=== PATIENT | female | born 1960 | race Caucasian/White ===

== ENCOUNTER 2018-02-09 20:01 | Observation (INO) ==
[2018-02-09 20:41] LABS: Basophils % 0.3 %; Eosinophils # 0.1 K/mcL (0.0-0.6); Eosinophils % 1.2 %; Hematocrit 39.9 % (35.3-44.9); Hemoglobin 13.9 g/dL (11.5-15.4); Immature Granulocytes % 0.3 % (0-4); Lymphocytes # 2.4 K/mcL (0.6-4.6); Lymphocytes % 26.3 %; Mean Corpuscular HGB Conc 34.8 g/dL (31.6-35.5); Mean Corpuscular Hemoglobin 29.6 pg (28.0-33.3); Mean Corpuscular Volume 84.9 fL (83.0-100.0); Mean Platelet Volume 10.7 fL (9.4-12.4); Monocytes # 0.5 K/mcL (0.0-1.3); Monocytes % 5.9 %; Platelet Count 210 K/mcL (140-400); Red Cell Distribution Width 12.1 % (11.5-14.5)
[2018-02-09 20:50] LABS: Activated Partial Thrombo Time 32.5 Seconds (26.0-36.0)
--- NOTE | 2018-02-09 21:01 | Emergency Department Note ---
Disposition Clinical Impression: Chest pain Disposition: Admitted As Inpatient Condition: Good Referrals: Nette Yun MD [Primary Care Provider] - Forms: ED Satisfaction Letter Time of Disposition: 21:37 Chest Pain HPI - General Chief Complaint: ED Chest Pain Stated Complaint: cp/sob Time Seen by Provider: 02/09/18 20:26 Source: patient Mode of arrival: ambulatory Limitations: no limitations Vital Signs Reviewed: Yes Nursing Notes Reviewed: Yes - History of Present Illness HPI Narrative: Patient presents to the ED with the chief complaint of chest pain. Patient does have a history of [place] requiring one stent about 2 years ago. States that she woke up this evening to go to work over night around 6 PM and just did not feel right. She went to work and had her blood pressure checked and it was very high. Reports that she took her blood pressure medicine and that had come down. During this timeframe. She also started developing some centralized chest heaviness and pressure. She also was diaphoretic and nauseated. She states this was how she fell last time before she had her heart attack. The pain went away and has been gone since. She states she is just concerned because this is how she felt before her last heart attack. Severity scale (1-10): 0 - Related Data Home Medications Medication Instructions Recorded Confirmed Aspirin Enteric Coated [Aspirin EC] 81 mg PO DAILY 02/09/18 02/09/18 Cyclobenzaprine [Flexeril] 10 mg PO BID 02/09/18 02/09/18 Meloxicam 15 mg PO DAILY 02/09/18 02/09/18 Metoprolol [Lopressor] 50 mg PO BID 02/09/18 02/09/18 Rosuvastatin [Crestor] 40 mg PO DAILY 02/09/18 02/09/18 Allergies Allergy/AdvReac Type Severity Reaction Status Date / Time No Known Allergies Allergy Verified 09/02/16 21:52 Review of Systems: As reviewed in the HPI. All other systems reviewed are negative or normal. 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 Absent: tenderness, distention, guarding, rebound, rigidity - Extremities Exam Extremities exam: Present: normal inspection, full ROM. Absent: tenderness, pedal edema Course Course Narrative: Patient presenting with chest pain. It is her anginal equivalent. We will workup and likely admit - Reevaluation(s) Reevaluation #1: Admitted to the hospitalist service under Dr. Stewart. Vital Signs Temperature 97.9 F 02/09/18 20:08 Pulse Rate 99 02/09/18 20:08 Respiratory Rate 22 02/09/18 20:08 Blood Pressure 202/111 02/09/18 20:08 O2 Sat by Pulse Oximetry 98 02/09/18 20:08 Temperature 97.9 F 02/09/18 20:08 Pulse Rate 99 02/09/18 20:08 Respiratory Rate 22 02/09/18 20:08 Blood Pressure 202/111 02/09/18 20:08 O2 Sat by Pulse Oximetry 98 02/09/18 20:08 Oxygen Delivery Oxygen Delivery Room Air Chest Pain - Medical Records Medical records reviewed: Yes I reviewed the patient's medical records. - Lab Data Lab results reviewed: Yes I reviewed the patient's lab results. Result diagrams: 02/09/18 20:23 02/09/18 20:23 Lab Results 02/09/18 02/09/18 02/09/18 Range/Units 20:13 20:13 20:23 WBC 9.2 (4.3-11.1) K/mcL RBC 4.70 (3.82-4.97) M/mcL Hgb 13.9 (11.5-15.4) g/dL Hct 39.9 (35.3-44.9) % MCV 84.9 (83.0-100.0) fL MCH 29.6 (28.0-33.3) pg MCHC 34.8 (31.6-35.5) g/dL RDW 12.1 (11.5-14.5) % Plt Count 210 (140-400) K/mcL MPV 10.7 (9.4-12.4) fL Immature Gran % 0.3 (0-4) % Seg Neutrophils % 66.0 % Lymphocytes % 26.3 % Monocytes % 5.9 % Eosinophils % 1.2 % Basophils % 0.3 % Neutrophils # 6.0 (1.6-8.9) K/mcL Lymphocytes # 2.4 (0.6-4.6) K/mcL Monocytes # 0.5 (0.0-1.3) K/mcL Eosinophils # 0.1 (0.0-0.6) K/mcL Basophils # 0.0 (0.0-0.2) K/mcL PT 11.0 (9.4-12.1) Seconds INR 1.0 APTT 32.5 (26.0-36.0) Seconds Sodium (136-145) mEq/L Potassium (3.5-5.1) mEq/L Chloride (98-107) mEq/L Carbon Dioxide (23-29) mEq/L BUN (6-20) mg/dL Creatinine (0.60-1.20) mg/dL Est GFR ( Amer) (> 60) Est GFR (Non-Af Amer) (> 60) BUN/Creatinine Ratio (6-26) Glucose (70-105) mg/dL Calculated Osmolality (280-300) Calcium (8.6-10.3) mg/dL Troponin I (< 0.04) ng/mL B-Natriuretic Peptide 9 (Less than 100) pg/mL 02/09/18 Range/Units 20:23 WBC (4.3-11.1) K/mcL RBC (3.82-4.97) M/mcL Hgb (11.5-15.4) g/dL Hct (35.3-44.9) % MCV (83.0-100.0) fL MCH (28.0-33.3) pg MCHC (31.6-35.5) g/dL RDW (11.5-14.5) % Plt Count (140-400) K/mcL MPV (9.4-12.4) fL Immature Gran % (0-4) % Seg Neutrophils % % Lymphocytes % % Monocytes % % Eosinophils % % Basophils % % Neutrophils # (1.6-8.9) K/mcL Lymphocytes # (0.6-4.6) K/mcL Monocytes # (0.0-1.3) K/mcL Eosinophils # (0.0-0.6) K/mcL Basophils # (0.0-0.2) K/mcL PT (9.4-12.1) Seconds INR APTT (26.0-36.0) Seconds Sodium 137 (136-145) mEq/L Potassium 4.2 (3.5-5.1) mEq/L Chloride 105 (98-107) mEq/L Carbon Dioxide 27 (23-29) mEq/L BUN 24 H (6-20) mg/dL Creatinine 0.77 (0.60-1.20) mg/dL Est GFR ( Amer) > 60 (> 60) Est GFR (Non-Af Amer) > 60 (> 60) BUN/Creatinine Ratio 31 H (6-26) Glucose 133 H (70-105) mg/dL Calculated Osmolality 290 (280-300) Calcium 9.9 (8.6-10.3) mg/dL Troponin I < 0.03 (< 0.04) ng/mL B-Natriuretic Peptide (Less than 100) pg/mL - Radiology Data Radiology results reviewed: Yes I reviewed the patient's radiology results. - EKG Data EKG attestation: Yes I reviewed and interpreted this EKG. EKG results narrative: Sinus rhythm, rate 88, DC interval 160, QRS 79, QTC 372, left axis deviation, no acute ischemic changes Heart Score - Score History: Highly Suspicious EKG: Non Specific repolarisation Disturbance Age: 45-65 Risk Factors: Equal/Greater than 3 risk factor or history of atherosclerotic disease Troponin: Less than normal limit HEART Score Total: 6
[2018-02-09 21:03] LABS: BUN/Creatinine Ratio 31 (6-26); Blood Urea Nitrogen 24 mg/dL (6-20); Calcium 9.9 mg/dL (8.6-10.3); Carbon Dioxide 27 mEq/L (23-29); Chloride 105 mEq/L (98-107); Glucose 133 mg/dL (70-105); Osmolality,Calculated 290 (280-300); Potassium 4.2 mEq/L (3.5-5.1); Sodium 137 mEq/L (136-145); eGFR For African Americans > 60 (> 60); eGFR For Non-African Americans > 60 (> 60)
[2018-02-09 21:04] LABS: Troponin I < 0.03 ng/mL (< 0.04)
[2018-02-09] MEDS ORDERED: Naloxone 0.4 MG/ML INJ IVP PRN (21:52)
--- NOTE | 2018-02-09 21:55 | Internal Med History&Physical ---
Date of Encounter: 02/09/18 Time of Encounter: 21:54 Internal Medicine - H&P: HPI Chief complaint: Chest pain Admitted From: Emergency Dept Plans for Post Hospital Care: Home History of present illness: Ms. Gimenez is a 57 year old female who has background medical history of hypertension, hyperlipidemia, previous DVT, previous [place] followed by angiography and stent. Patient was not feeling well for the past 3 days. This morning when she was heading to her workplace, at that time she felt that she is not with herself. She was evaluated by her work associated healthcare provider and was told that her blood pressure is above 200. Patient was persistently feeling drowsy, fatigue and low energy. Patient was complaining of left-sided precordial chest pain which was nonradiating, localized, not associated with vomiting. Patient claims that the pain gets worse with the labs Workup in the emergency room: Patient was evaluated by the emergency room physician. Baseline labs were ordered. Reason for admission: Chest pain to rule out ACS. Past Med Surg Social Fam HX - Past Medical History Medical history: DVT, hyperlipidemia, hypertension, myocardial infarction Psychiatric history: no psych history - Social History Smoking Status: Former smoker Smokeless Tobacco Status: No Alcohol use: rarely Drug use: none - Family History Mother Living Status: Still Living Hx Family Cardiac Disorders: Yes (stents, mi) Hx Family Respiratory Disorders: Yes Hx Family Cancer: Yes (breast) Hx Family Genitourinary Disorders: Yes Hx Family Endocrine Disorder: Yes (dm) Father Living Status: Age at : 63 Cause of : mi Hx Family Cardiac Disorders: Yes (mi) Internal Medicine - H&P: Meds Aspirin Enteric Coated [Aspirin EC] 81 mg PO DAILY 02/09/18 [History] Cyclobenzaprine [Flexeril] 10 mg PO BID 02/09/18 [History] Meloxicam 15 mg PO DAILY 02/09/18 [History] Metoprolol [Lopressor] 50 mg PO BID 02/09/18 [History] Rosuvastatin [Crestor] 40 mg PO DAILY 02/09/18 [History] 3 Allergy/AdvReac Type Severity Reaction Status Date / Time No Known Allergies Allergy Verified 09/02/16 21:52 All Systems PM: A 10-system review of systems was performed and is negative for pertinent findings except as documented above in the HPI. - Constitutional Constitutional: no chills, no fever(s), no night sweats - EENT Eyes: no change in vision, no discharge, no pain, no photophobia Ears: no ear discharge, no ear pain, no tinnitus Nose, mouth and throat: no dysphagia, no nasal discharge, no neck pain, no sore throat - Cardiovascular Cardiovascular ROS IM: no chest pain, no diaphoresis, no dyspnea, no lightheadedness, no palpitations, no syncope - Respiratory Respiratory: no cough, no dyspnea, no wheezing, no excessive phlegm production - Gastrointestinal Gastrointestinal: no abdominal pain, no diarrhea, no hematemesis, no hematochezia, no melena, no nausea, no vomiting - Genitourinary Genitourinary: no change in urinary stream, no dysuria, no flank pain, no hematuria - Musculoskeletal Musculoskeletal ROS IM: no numbness, no tingling - Integumentary Integumentary IM: no rash, no unusual bruising - Neurological Neurological ROS: no confusion, no convulsions, no focal weakness, no numbness, no tingling, no tremor(s) - Hematologic/Lymphatic Hematologic/Lymphatic: no easy bruising - Constitutional Vitals: Temp Pulse Resp BP Pulse Ox 97.9 F 99 22 202/111 98 02/09/18 20:08 02/09/18 20:08 02/09/18 20:08 02/09/18 20:08 02/09/18 20:08 General appearance: Present: A&O X 3, pleasant, no acute distress, answers questions appropriately - Head Head exam: Present: atraumatic, normocephalic - Eye Eye exam: Present: PERRL, conjuntiva pink, sclera anicteric Pupils: Present: PERRL - Neck Neck exam general surgery: Present: supple, trachea midline. Absent: lymphadenopathy - Respiratory Respiratory exam: Present: CTAB. Absent: accessory muscle use, rales, rhonchi, wheezes - Cardiovascular Cardiovascular exam: Present: RRR, +S1, +S2. Absent: diastolic murmur, gallop, rubs, systolic murmur - GI/Abdominal GI/Abdominal exam: Present: normal bowel sounds, soft, no peritoneal signs. Absent: distended, tenderness - Extremities Exam Extremities exam: Present: warm, radial pulses palpable and symmetrical. Absent : calf tenderness, cyanotic, pedal edema - Neurological Exam Neurological exam: Present: CN II-XII intact, oriented X3, no focal deficits. Absent: pronater drift, facial droop, speech deficit - Skin Skin exam: Present: dry, intact Internal Med - H&P Results - Labs CBC & Chem 7: 02/09/18 20:23 02/09/18 20:23 Labs: Short CBC 02/09/18 Range/Units 20:23 WBC 9.2 (4.3-11.1) K/mcL Hgb 13.9 (11.5-15.4) g/dL Hct 39.9 (35.3-44.9) % Plt Count 210 (140-400) K/mcL Neutrophils # 6.0 (1.6-8.9) K/mcL BMP 02/09/18 20:23 Sodium 137 Potassium 4.2 Chloride 105 Carbon Dioxide 27 BUN 24 H Creatinine 0.77 Glucose 133 H Calcium 9.9 Cardiac Enzymes 02/09/18 Range/Units 20:23 Troponin I < 0.03 (< 0.04) ng/mL - Impressions ITS Impressions Chest X-Ray 02/09/18 20:13 IMPRESSION: No acute process. D/ / Samson Correia MD / Samson Correia MD Interpreting Provider: Samson Correia MD - Assessment and plan (1) Chest pain Current Visit: Yes Status: Acute Assessment and plan: 57/female Admitted with chest pain. ETTA score: 4 EKG: Nonspecific ST-T changes. Heart score:4 Plan: Admit as observation. Cardiac diet. EKG. Cycle troponin. Echocardiogram. If 3 troponins are normal and echocardiogram is normal then please consider stress test. I have examined this patient in the emergency room #21. Along with the patient and her was present in the room. Plan of care explained to the patient and her family members. They verbalize understanding Qualifiers: Chest pain type: precordial pain Qualified Code(s): R07.2 - Precordial pain (2) Coronary artery disease Current Visit: Yes Status: Acute Assessment and plan: Patient is known to have a coronary artery disease. Patient is a previous myocardial infarction with status post stent placement. We need records from the hospital where this procedure was done. Presently we will resume home medications. Qualifiers: Coronary Disease-Associated Artery/Lesion type: eek artery [place] vs. transplanted heart: eek heart Associated angina: with stable angina Qualified Code(s): I25.118 - Atherosclerotic heart disease of eek coronary artery with other forms of angina pectoris (3) Hypertension Current Visit: Yes Status: Acute Assessment and plan: Patient's blood pressure was elevated in the morning. Now her blood pressure is within acceptable range. We will resume the home medication. Close monitoring of the blood pressure during her hospitalization. Qualifiers: Hypertension type: essential hypertension Qualified Code(s): I10 - Essential (primary) hypertension (4) Dyslipidemia Current Visit: Yes Status: Acute Assessment and plan: We will resume home medication. We will get lipid panel tomorrow. (5) DVT prophylaxis Current Visit: Yes Status: Acute Assessment and plan: SCD Medical decision making: This patient has a moderate to severe risk of worsening in spite of being on appropriate medication due to the underlying complex medical condition. - Time Spent With Patient Total time spent is greater than 50% in coordination of care (as documented) at patient's floor/unit and/or counseling patient:
[2018-02-09] MEDS ORDERED: Nitroglycerin 0.4 MG TAB.SUBL SL PRN (21:56)
--- NOTE | 2018-02-09 22:24 | Emergency Department Note ---
Disposition Clinical Impression: Chest pain Disposition: Admitted As Inpatient Condition: Good General Adult HPI - General Chief complaint: ED Chest Pain Stated complaint: cp/sob Time Seen by Provider: 02/09/18 20:26 Source: patient Mode of arrival: ambulatory Limitations: no limitations Nursing Notes Reviewed: Yes Vital Signs Reviewed: Yes - History of Present Illness Pain Scale: 0 - Related Data Home Medications Medication Instructions Recorded Confirmed Aspirin Enteric Coated [Aspirin EC] 81 mg PO DAILY 02/09/18 02/09/18 Cyclobenzaprine [Flexeril] 10 mg PO BID 02/09/18 02/09/18 Meloxicam 15 mg PO DAILY 02/09/18 02/09/18 Metoprolol [Lopressor] 50 mg PO BID 02/09/18 02/09/18 Rosuvastatin [Crestor] 40 mg PO DAILY 02/09/18 02/09/18 Allergies Allergy/AdvReac Type Severity Reaction Status Date / Time No Known Allergies Allergy Verified 09/02/16 21:52 Constitutional: Reports: as per HPI Eyes: Reports: as per HPI Cardiovascular: Reports: as per HPI Past Medical History - Past Medical History Medical history: Reports: DVT, hyperlipidemia, hypertension, myocardial infarction Psychiatric history: Reports: no 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 - Social History Smoking Status: Former smoker Smokeless Tobacco Status: No Alcohol use: Reports: rarely Drug use: Reports: none Physical Exam - General Limitations: no limitations General appearance: alert, in no apparent distress Course Vital Signs Temperature 97.9 F 02/09/18 20:08 Pulse Rate 99 02/09/18 20:08 Respiratory Rate 22 02/09/18 20:08 Blood Pressure 202/111 02/09/18 20:08 O2 Sat by Pulse Oximetry 98 02/09/18 20:08 Temperature 97.9 F 02/09/18 20:08 Pulse Rate 76 02/09/18 22:01 Respiratory Rate 16 02/09/18 22:01 Blood Pressure 157/99 02/09/18 22:01 O2 Sat by Pulse Oximetry 98 02/09/18 22:01 Oxygen Delivery Oxygen Delivery Room Air Medical Decision Making - Lab Data Result diagrams: 02/09/18 20:23 02/09/18 20:23 Lab Results 02/09/18 02/09/18 02/09/18 Range/Units 20:13 20:13 20:23 WBC 9.2 (4.3-11.1) K/mcL RBC 4.70 (3.82-4.97) M/mcL Hgb 13.9 (11.5-15.4) g/dL Hct 39.9 (35.3-44.9) % MCV 84.9 (83.0-100.0) fL MCH 29.6 (28.0-33.3) pg MCHC 34.8 (31.6-35.5) g/dL RDW 12.1 (11.5-14.5) % Plt Count 210 (140-400) K/mcL MPV 10.7 (9.4-12.4) fL Immature Gran % 0.3 (0-4) % Seg Neutrophils % 66.0 % Lymphocytes % 26.3 % Monocytes % 5.9 % Eosinophils % 1.2 % Basophils % 0.3 % Neutrophils # 6.0 (1.6-8.9) K/mcL Lymphocytes # 2.4 (0.6-4.6) K/mcL Monocytes # 0.5 (0.0-1.3) K/mcL Eosinophils # 0.1 (0.0-0.6) K/mcL Basophils # 0.0 (0.0-0.2) K/mcL PT 11.0 (9.4-12.1) Seconds INR 1.0 APTT 32.5 (26.0-36.0) Seconds Sodium (136-145) mEq/L Potassium (3.5-5.1) mEq/L Chloride (98-107) mEq/L Carbon Dioxide (23-29) mEq/L BUN (6-20) mg/dL Creatinine (0.60-1.20) mg/dL Est GFR ( Amer) (> 60) Est GFR (Non-Af Amer) (> 60) BUN/Creatinine Ratio (6-26) Glucose (70-105) mg/dL Calculated Osmolality (280-300) Calcium (8.6-10.3) mg/dL Troponin I (< 0.04) ng/mL B-Natriuretic Peptide 9 (Less than 100) pg/mL 02/09/18 Range/Units 20:23 WBC (4.3-11.1) K/mcL RBC (3.82-4.97) M/mcL Hgb (11.5-15.4) g/dL Hct (35.3-44.9) % MCV (83.0-100.0) fL MCH (28.0-33.3) pg MCHC (31.6-35.5) g/dL RDW (11.5-14.5) % Plt Count (140-400) K/mcL MPV (9.4-12.4) fL Immature Gran % (0-4) % Seg Neutrophils % % Lymphocytes % % Monocytes % % Eosinophils % % Basophils % % Neutrophils # (1.6-8.9) K/mcL Lymphocytes # (0.6-4.6) K/mcL Monocytes # (0.0-1.3) K/mcL Eosinophils # (0.0-0.6) K/mcL Basophils # (0.0-0.2) K/mcL PT (9.4-12.1) Seconds INR APTT (26.0-36.0) Seconds Sodium 137 (136-145) mEq/L Potassium 4.2 (3.5-5.1) mEq/L Chloride 105 (98-107) mEq/L Carbon Dioxide 27 (23-29) mEq/L BUN 24 H (6-20) mg/dL Creatinine 0.77 (0.60-1.20) mg/dL Est GFR ( Amer) > 60 (> 60) Est GFR (Non-Af Amer) > 60 (> 60) BUN/Creatinine Ratio 31 H (6-26) Glucose 133 H (70-105) mg/dL Calculated Osmolality 290 (280-300) Calcium 9.9 (8.6-10.3) mg/dL Troponin I < 0.03 (< 0.04) ng/mL B-Natriuretic Peptide (Less than 100) pg/mL Attestation Statement - Attestation Attestation: I, Jethro Upton MD, personally evaluated this patient and discussed their management with the resident physician. I reviewed the resident's note and agree with the documented findings, medical decision making, and plan of care. 57-year-old female presents to the emergency department with a complaint of right upper chest pain which started about 5 PM today. Pain resolved but then patient states that she just felt bad and weak. She went to work about 6 PM and they checked her blood pressure and it was elevated. She does have a cardiac history and has coronary artery stents. On examination patient is a well-developed well-nourished female in no acute distress. She is alert and oriented 3. There is no cyanosis or diaphoresis. Chest is nontender to palpation. Breath sounds are clear and equal bilaterally. Heart regular rate and rhythm. Abdomen soft and nontender with normal bowel sounds. EKG shows a normal sinus rhythm with ventricular rate of 88. No acute ST segment elevation or depression. No significant change from old EKG dated . Chest x-ray negative. Labs reviewed and unremarkable. Troponin normal. The hospitalist, Dr. Stewart, was consulted and accepted admission of the patient.
[2018-02-10] MEDS ORDERED: Acetaminophen 325 MG TABLET PO PRN (02:17)
[2018-02-10 04:52] LABS: Basophils % 0.4 %; Eosinophils # 0.1 K/mcL (0.0-0.6); Eosinophils % 1.5 %; Hematocrit 39.7 % (35.3-44.9); Hemoglobin 13.4 g/dL (11.5-15.4); Immature Granulocytes % 0.5 % (0-4); Lymphocytes # 3.2 K/mcL (0.6-4.6); Lymphocytes % 38.2 %; Mean Corpuscular HGB Conc 33.8 g/dL (31.6-35.5); Mean Corpuscular Hemoglobin 28.6 pg (28.0-33.3); Mean Corpuscular Volume 84.8 fL (83.0-100.0); Mean Platelet Volume 10.9 fL (9.4-12.4); Monocytes # 0.5 K/mcL (0.0-1.3); Monocytes % 5.9 %; Neutrophils # 4.6 K/mcL (1.6-8.9); Platelet Count 217 K/mcL (140-400); Red Blood Count 4.68 M/mcL (3.82-4.97); Red Cell Distribution Width 12.3 % (11.5-14.5); Segmented Neutrophils % 53.5 %
[2018-02-10 04:58] LABS: INR 1.1; Prothrombin Time 11.9 Seconds (9.4-12.1)
[2018-02-10 05:00] LABS: Activated Partial Thrombo Time 31.5 Seconds (26.0-36.0)
[2018-02-10 05:14] LABS: Alanine Aminotransferase 19 Units/L (7-52); Albumin/Globulin Ratio 1.5 (1.1-2.2); Alkaline Phosphatase 83 Units/L (34-104); Aspartate Amino Transferase 17 Units/L (13-39); BUN/Creatinine Ratio 28 (6-26); Bilirubin,Total 0.4 mg/dL (0.3-1.0); Blood Urea Nitrogen 18 mg/dL (6-20); Calcium 9.4 mg/dL (8.6-10.3); Carbon Dioxide 28 mEq/L (23-29); Chloride 107 mEq/L (98-107); Chol/HDL Ratio 3.3 (0-4.9); Cholesterol 125 mg/dL (< 200); Globulin 2.7 g/dL (2.4-3.5); Glucose 103 mg/dL (70-105); HDL Cholesterol 38 mg/dL (40-59); LDL Cholesterol,Calculated 68 mg/dL (0-99); Osmolality,Calculated 294 (280-300); Phosphorous 3.8 mg/dL (2.7-4.5); Potassium 3.8 mEq/L (3.5-5.1); Sodium 141 mEq/L (136-145); Total Protein 6.7 g/dL (6.4-8.9); Triglycerides 97 mg/dL (< 150); Troponin I < 0.03 ng/mL (< 0.04); eGFR For African Americans > 60 (> 60); eGFR For Non-African Americans > 60 (> 60)
[2018-02-10] MEDS: Aspirin Enteric Coated 81 MG Tablet PO SCH ×2 (08:40→17:31)
[2018-02-10] MEDS ORDERED: Regadenoson 0.4 MG/5 ML SYRINGE IVP ONE (10:28)
[2018-02-10 15:55] VITALS: BP 140/82
[2018-02-10] MEDS ORDERED: Mag Hydrox/Al Hydrox/Simeth 30 ML UDC PO PRN (16:43)
--- NOTE | 2018-02-10 17:14 | Discharge Summary ---
- NOTES TO OUTPATIENT PROVIDER Notes to Outpatient Provider: Pt was admitted for chest pain, stress negative, echo with 70% EF. Pt with hypertensive urgency on admission. BP well controlled in the hospital, no medication changes made. Orders not resulted at time of discharge: Pending orders 02/10/18 08:14 NM salvador perf SPECT multi [NM] Routine Date of Encounter: 02/10/18 Time of Encounter: 16:40 - Discharge Diagnosis (1) Chest pain Priority: Primary Status: Acute Comments: She presented to the emergency department from work. She reported fatigue, not feeling well for 3 days. On the morning of admission, when she is on her way to work, she felt that she was not herself. When she reached work was evaluated , she was told her blood pressure systolic was above 200. She states at that time she was feeling drowsy, fatigue, low energy. She reported left-sided chest pain, nonradiating, not associated with vomiting, nausea, diaphoresis, or shortness of breath. Pain is not reproducible. Patient's ETTA score is 4. EKG in the emergency department was normal sinus with nonspecific ST changes. Troponins were negative 3. Chest x-ray was negative. Patient's stress test, with a gated EF 70%, perfusion imaging was negative for ischemia or infarct. Echocardiogram showed an LVEF of 70%, mild LV DD, no significant valvular dysfunction. Patient admitted with hypertensive emergency with blood pressure 202/111 on admission. Patient denies chest pain. She reports increased stress due to work stress. Prior history of RI. Patient is a nonsmoker does not use alcohol or any recreational drugs. Chest pain likely secondary to hypertension. Follow with primary care. Qualifiers: Chest pain type: precordial pain Qualified Code(s): R07.2 - Precordial pain (2) Coronary artery disease Priority: Secondary Status: Acute Comments: Patient with known coronary artery disease, [place] stent placement. Continue home medications. Chest pain has resolved. Qualifiers: Coronary Disease-Associated Artery/Lesion type: [place] artery [place] vs. transplanted heart: [place] heart Associated angina: with stable angina Qualified Code(s): I25.118 - Atherosclerotic heart disease of [place] coronary artery with other forms of angina pectoris (3) Hypertension Priority: Secondary Status: Chronic Comments: Chronic. Patient with hypertensive emergency on admission. She reports that she has when necessary medication for hypertension, she does not have them with her. Patient is mildly hypertensive, blood pressure is well controlled. Will add hydrochlorothiazide 12.5 mg daily. Patient attributes hypertension to job related stress. Have encouraged exercise , meditation, stress reduction techniques, primary care follow-up. Qualifiers: Hypertension type: essential hypertension Qualified Code(s): I10 - Essential (primary) hypertension (4) Dyslipidemia Priority: Secondary Status: Chronic Comments: Resume home medications. Lipid panel within normal limits. (5) DVT prophylaxis Priority: Secondary Status: Acute Comments: Patient is ambulatory. Hospital course: Ms. Gimenez is a 57 year old female with past medical history of coronary artery disease, dyslipidemia, [place] with stent placement, hypertension. Patient presented to the emergency department complaining of chest pressure 200/110s. Chest x-ray was negative, troponins are negative, stress test was negative with gated EF of greater than 70%, echocardiogram with EF of 70%, mild LV DD, no valvular dysfunction. Patient's chest pain has resolved. I have added 12.5 mg of HCTZ to her antihypertensive medication regimen due to borderline hypertension in the hospital. Labs and vitals are stable. Patient is appropriate and stable for discharge. Discharge discussed with: patient, family, nurse - Time Spent with Patient Total time spent providing and/or coordinating discharge services: Less than 30 minutes - Discharge Medications Prescriptions: hydroCHLOROthiazide [Hydrochlorothiazide] 12.5 mg PO DAILY #30 tablet Home Medications: Aspirin Enteric Coated [Aspirin EC] 81 mg PO DAILY 02/09/18 [History] Cyclobenzaprine [Flexeril] 10 mg PO BID 02/09/18 [History] Meloxicam 15 mg PO DAILY 02/09/18 [History] Metoprolol [Lopressor] 50 mg PO BID 02/09/18 [History] Rosuvastatin [Crestor] 40 mg PO DAILY 02/09/18 [History] hydroCHLOROthiazide [Hydrochlorothiazide] 12.5 mg PO DAILY #30 tablet 02/10/18 [ Rx] Allergies/Adverse Reactions: 3 Allergy/AdvReac Type Severity Reaction Status Date / Time No Known Allergies Allergy Verified 09/02/16 21:52 Date of admission: 02/09/18 22:03 Primary care physician: Nette Yun Discharging clinician: Nelly Cary Anticipated date of discharge: 02/10/18 - Constitutional Vitals: Temp Pulse Resp BP Pulse Ox 98.4 F 110 16 140/82 94 02/10/18 15:54 02/10/18 15:54 02/10/18 15:54 02/10/18 15:54 02/10/18 15:54 General appearance: Present: cooperative, A&O X 3, pleasant, no acute distress, answers questions appropriately - Head Head exam: Present: atraumatic, normal inspection, normocephalic - Eye Eye exam: Present: normal appearance, conjuntiva pink, sclera anicteric - Neck Neck exam general surgery: Present: supple, trachea midline. Absent: lymphadenopathy, tenderness - Respiratory Respiratory exam: Present: CTAB. Absent: accessory muscle use, chest wall tenderness, rales, rhonchi, wheezes - Cardiovascular Cardiovascular exam: Present: RRR, +S1, +S2. Absent: diastolic murmur, gallop, rubs, systolic murmur - GI/Abdominal GI/Abdominal exam: Present: normal bowel sounds, soft. Absent: distended, tenderness - Extremities Exam Extremities exam: Present: normal capillary refill, normal inspection, warm, radial pulses palpable and symmetrical. Absent: calf tenderness, cyanotic, pedal edema, tenderness - Neurological Exam Neurological exam: Present: alert, oriented X3, no focal deficits. Absent: facial droop, speech deficit - Skin Skin exam: Present: dry, intact, normal color, warm. Absent: rash - Patient Status Disposition: Home, Self-Care Condition: Good Functional capacity at discharge: independent ambulation Overall status at discharge: patient is back to baseline - Discharge Instructions Follow Up With: Nette Yun MD [Primary Care Provider] - 02/24/18 3:00 pm Additional Instructions: Follow up with your PCP as scheduled. Your BP is borderline high, I have added a small dose of a water pill to your medications. I have sent it to [facility] for you to product picker when you are discharged. Return to the ER as needed for any other problems or concerns, or if your symptoms return or worsen. Try to find some enjoyable relaxation techniques and practice them at least every other day. TAke your medications as directed. Return to your normal diet and activities as tolerated. - Diet and Activity Activity: increase activity as tolerated Diet: advance to your usual diet
--- NOTE | 2018-02-14 12:23 | Electrocardiograph Report ---
[place] [id number] Test Date: 2018-02-09 Pat Name: Lia Gimenez Department: 104 Room: 3B Gender: F [place]: NEERAJ : 1960 Requested By: Jethro Upton Order Number: [id number] Reading MD: Mohsen Barone Measurements Intervals [place] Rate: 88 P: 40 SD: 160 QRS: -4 QRSD: 79 T: 30 QT: 326 QTc: 372 Interpretive Statements SINUS RHYTHM POSSIBLE RIGHT VENTRICULAR CONDUCTION DELAY Electronically Signed On 02-14-2018 12:21:48 EDT by Mohsen Barone
== END 2018-02-10 17:49 | disposition home or self-care (01) ==
LOC: 3BNU 20:01 → EMEROO 20:01 → 3BNU 22:35
PROVIDERS: ADMIT Internal Medicine; ATTEND Registered Nurse